=== PATIENT | male | born 1995 | race Caucasian/White ===

== ENCOUNTER 2018-10-14 13:59 | Emergency (ER) | payer OTHER ==
[~2018-10-14] VITALS: Ht 172.7 cm; Wt 75.0 kg
[2018-10-14] MEDS ORDERED: ACET500T15 PO (14:19)
[2018-10-14] MEDS ORDERED: ONDANSETRON 4 MG ORAL DISINTEGRATING TAB (Q0162 PER 1MG) PO ONE (15:00)
[2018-10-14 15:33] LABS: INFLUENZA A AMPLIFICATION NEGATIVE (NEGATIVE); INFLUENZA B AMPLIFICATION NEGATIVE (NEGATIVE)
[2018-10-14 15:52] VITALS: BP 121/75
[2018-10-14] MEDS ORDERED: ONDA4TAB6 PO (16:15)
== END 2018-10-14 16:23 | disposition home or self-care (01) ==
LOC: M ED 13:59
DX: R11.10 Vomiting, unspecified (principal); Z20.828 Contact with and (suspected) exposure to other viral communicable diseases
CPT/HCPCS: 87502; 87880; 99284; Q0162